=== PATIENT | male | born 1935 | race Caucasian/White ===

== ENCOUNTER 2016-07-17 17:49 | Emergency (ER) | payer MEDICARE ==
--- NOTE | 2016-07-17 18:22 | DIAGNOSTIC IMAGING REPORT ---
PROCEDURE: CT HEAD WITHOUT CONTRAST INDICATION: Right numbness. Code stroke. TECHNIQUE: Noncontrast axial images with sagittal and coronal reformations. COMPARISON: None. FINDINGS: Brain and ventricles are normal (mild atrophic changes). No evidence of an acute process or hemorrhage. Sinuses and mastoids are normal. IMPRESSION: 1. Negative head CT (mild atrophic changes). No evidence of acute process. 2. Findings discussed with Dr. Bradly Pratt at [address] scans at this facility use dose modulation, iterative reconstruction, and/or weight-based dosing when appropriate to reduce radiation dose to as low as reasonably achievable.
--- NOTE | 2016-07-17 20:35 | ED CLINICAL REPORT ---
Clinical Report - Physicians/Mid Levels [facility] [address] [place] [address] 07/17/2016 17:53 Patient: JUAN ALBERTO MARINA Time Seen: 18:07; initial patient contact. Arrived- By private vehicle. Historian- patient. HISTORY OF PRESENT ILLNESS Chief Complaint: WEAKNESS and PARESTHESIA. This started today and is now gone. The patient has had new onset of constant weakness of the right arm (moderate), right hand (moderate), right leg (moderate) and right foot (moderate). He has had new onset of constant numbness of the right arm (mild), right hand (mild), right leg (mild) and right foot (mild). No tingling, impaired speech or swallowing, visual disturbance or recent fall. No difficulty walking. At its maximum deficit described as moderate. When seen in the E.D., it was gone. No dizziness, altered mental status, seizure or blackouts. Usually is alert and oriented X3 and has normal mobility. (Pt states since he has not been able to easily cut his BP pill in 06/29, he has been taking it QOD.). Similar symptoms previously: None. Recent medical care: Not recently seen/assessed. REVIEW OF SYSTEMS The patient has had a headache. No head injury, chest pain, difficulty breathing, nausea or vomiting. All systems otherwise negative, except as recorded above. PAST HISTORY ( Gastroesophageal Reflux Disease. Hypertension. HLD). Surgeries: No history of previous surgery. SOCIAL HISTORY Never smoker. Occasional alcohol use. No drug use. ADDITIONAL NOTES The nursing notes have been reviewed with agreement regarding the chief complaint, PMH and patient medications and allergies. PHYSICAL EXAM Vital Signs: 07/17/2016 18:06 BP: 188/99. HR: 66. RR: 20. O2 saturation: 100%. Temp: 98.3 F. Have been reviewed. Hypertensive. Heart rate normal. Respiratory rate normal. Temperature normal. Oxygen saturation normal. Appearance: Alert. No acute distress. Head: Head atraumatic. Eyes: Pupils equal, round and reactive to light. ENT: Normal ENT inspection. Airway intact. Pharynx normal. Neck: Normal inspection. Neck supple. No carotid bruit. CVS: Bradycardia. Heart sounds normal. Pulses normal. Rhythm normal. Respiratory: No respiratory distress. Breath sounds normal. Abdomen: Soft and nontender. No organomegaly. Skin: Skin warm and dry. Normal skin color. No rash. Extremities: Extremities exhibit normal ROM. No lower extremity edema. No lower extremity edema. Neuro: Alert. Oriented X 3. Mood/affect normal. Speech normal. Cranial nerves normal (as tested). No cerebellar findings. No motor deficit. No sensory deficit. Reflexes normal. LABS, X-RAYS, AND EKG EKG: EKG time: (1822). No acute process. No acute ischemia. Bradycardia (ventricular rate 56). Sinus bradycardia. Normal P waves. Normal KEN. Normal QRS complex. LVH- in the precordial leads the R wave in V5 exceeds 26 mm; the R wave in V6 exceeds 26 mm. The QRS is less than 0.12. Normal axis. Normal ST and T waves, QT and QTc. Prior EKG unavailable. The study has been interpreted contemporaneously by me. The study has been independently viewed by me. The EKG appears to be a good tracing. I agree with and confirm the computer reading of the EKG. Interpretation time: 1822. CT Head: (1. Negative head CT (mild atrophic changes). No evidence of acute process.). Head CT performed without contrast. Prior studies were not available for comparison. The study was interpreted by the radiologist and discussed with the radiologist. Interpretation time: 1814. Laboratory Tests: CBC w Diff: (JEREMIAH: 07/17/2016 18:33) ( MsgRcvd 07/17/2016 18:42) Final results Test Result Flag Units (Reference) WHITE BLOOD COUNT 7.5 K/uL (4.5-11.5) RED BLOOD COUNT 4.65 M/uL (4.50-5.90) HEMOGLOBIN 14.6 gm/dL (13.5-17.5) HEMATOCRIT 43.5 % (41.0-53.0) MEAN CELL VOLUME 93 fL (80-100) MEAN CORPUSCULAR HGB 31 pg (26-34) MEAN CORPUSCULAR HGB CONC 34 g/dL (31-37) RED CELL DISTRIBUTION WIDTH 12.6 % (11.6-14.8) PLATELET COUNT 228 K/uL (150-400) NEUTROPHIL % 55.6 % (50-75) LYMPH % 31.5 % (25-40) MONO % 9.2 % (3-14) EOSINOPHIL % 3.5 % (0-4) BASOPHIL % 0.2 % (0-2) PT with INR: (JEREMIAH: 07/17/2016 18:33) ( [facility] 07/17/2016 18:53) Final results Test Result Flag Units (Reference) INR 1.0 (0.8-1.2) Low Intensity Therapy: INR 1.5-2.0 PT range 18.5-23.1Mod.Intensity Therapy: INR 2.0-3.0 PT range 23.1-31.5High Intensity Therapy: INR 2.5-3.5 PT range 27.4-35.5High Intensity Therapy 2: INR 3.0-4.0 PT range 31.5-39.3 APTT 31 SECONDS (24-34) FIBRINOGEN 204 mg/dL (193-455) D-DIMER QUANTITATIVE < 0.27 L ug/mLFEU (0.27-0.52) The primary value of this quantitative assay relates toits negative predictive value (i.e. exclusion) of pulmonaryembolism/deep vein thrombosis/DIC.Elevated levels of d-dimer may also occur with:, age, cancer, inflammation, liver disease,post-op, infection, hematoma, coronary disease, peripheralarteriopathy, bleeding disorders and thrombolytic treatment.Results should be correlated with other clinical andradiological data.Testing Methodology: Latex Immunoassay CMP: (JEREMIAH: 07/17/2016 18:33) ( [facility] 07/17/2016 18:56) Final results Test Result Flag Units (Reference) GLUCOSE 104 mg/dL (70-110) BUN 24 H mg/dL (7-18) CREATININE 1.5 H mg/dL (0.6-1.3) Estimated GFR 48.11 mL/min Estimated GFR- 58.30 mL/min Note: Persistent reduction over 3 months in eGFR<60 mL/min/1.73 m2 defines CKD. Patients with eGFR values>=60 mL/min/1.73 m2 may also have CKD if evidence ofpersistent proteinuria. Additional information may be foundat www.kidney.org. SODIUM 140 mmol/L (136-145) POTASSIUM 3.8 mmol/L (3.5-5.1) CHLORIDE 104 mmol/L (98-107) CARBON DIOXIDE 28 mmol/L (21-32) CALCIUM 8.8 mg/dL (8.5-10.1) TOTAL PROTEIN 7.5 g/dL (6.4-8.2) ALBUMIN 3.8 g/dL (3.3-5.0) BILIRUBIN, TOTAL 0.5 mg/dL (0.0-1.0) ALKALINE PHOSPHATASE 44 L U/L (46-116) AST (SGOT) 19 U/L (15-37) ALT (SGPT) 32 U/L (12-78) . PROGRESS AND PROCEDURES Disposition: Discharged home in good and improved condition. Condition: good. CLINICAL IMPRESSION Uncontrolled essential hypertension. INSTRUCTIONS Follow a low salt diet. (Monitor and record your blood pressure twice daily). Your Current Medications: CONTINUE TAKING THE FOLLOWING MEDICATIONS: Aspirin Oral. Blood Pressure Pill*. Omeprazole Oral. Follow-up: Follow up with your doctor in three days. Blood pressure screening was not performed during this visit because the patient has an active diagnosis of hypertension. The patient should follow up with a primary care provider for blood pressure management. (Electronically signed by Bradly Pratt Dr. 07/17/2016 20:42)
--- NOTE | 2016-07-17 20:35 | ED NURSING NOTES ---
Clinical Report - Nurses [facility] [address] [place] [address] 07/17/2016 17:53 [id number] TRI[facility] Triage time 1750. Acuity: LEVEL 2. Chief Complaint: WEAKNESS, NUMBNESS and DIFFICULTY WALKING. Alert. COLLEEN COMA SCORE: Colleen Coma Scale: 15- eyes open spontaneously (4); best verbal response- oriented x 4 (5); best motor response- obeys commands (6). --18:10 Viri Arellano 18:06 07/17/16. BP: 188/99. HR: 66. RR: 20. O2 saturation: 100%. Temp: 98.3 F. --18:10 Viri Arellano. Weight: 77.1 kg. Height/Length: 67 inches. BMI: 26.6. --18:06 Viri Arellano. Medications Omeprazole Oral. --18:07 Viri Arellano Blood Pressure Pill. --18:07 Viri Arellano Aspirin Oral. --18:30 Viri Arellano. Allergies Demerol. --21:10 Viri Arellano. History Arrived by private vehicle. Historian: family. Accompanied by family. This started today. Patient was last known well (0800). ( Pt sts awoke with right side numb, unable to walk or lift coffee cup, lasted 1.5 hrs then resolved yet pt still has a headache, code stroke called). 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 PAST MEDICAL HX: Hypertension. SOCIAL HX: Never smoker. Occasional alcohol use. --18:10 Viri Arellano. PROBLEMS: Gastroesophageal Reflux Disease. Hypertension. --18:08 Viri Arellano. ADDITIONAL SURGERIES: no known surgeries. Interventions To treatment room. --18:10 Viri Arellano. PHYSICAL ASSESSMENT Ambulatory to room. Patient gowned. ( Pt sts he also awoke with right eye blurriness that has also resolved, outside of headache pt feels normal, took ASA 81mg last night). GENERAL / NEURO / PSYCH: Awake. Oriented X 4. Alert. Appears anxious. Speech normal. Mood/affect normal. Moves all extremities. No motor deficit. No sensory deficit. Performed at 18:29. score of 0. HEENT: No facial asymmetry noted. Pupils equal, round and reactive to light. Pharynx within normal limits. RESPIRATORY: Breath sounds within normal limits. Respirations not labored. CVS: Normal sinus rhythm noted. Capillary refill less than 2 seconds. SKIN: Skin is intact, warm and dry. --18:29 Viri Arellano. NURSING PROGRESS NOTES 18:30 07/17/2016 Site #1 started via IV in the right wrist with an 18g angiocath, with aseptic technique; one attempt. Saline lock flushed with 10 mL saline. --18:30 Viri Arellano EKG time: (18:23). EKG was performed by a tech and shown to the ED physician. Checked patient name and birthdate: patient confirmed. Blood samples drawn from the left antecubital space with syringe and 21g butterfly by tech per protocol ; labeled in presence of the patient and sent to lab: rainbow set: cardiac enzymes (1st set). Finger stick glucose: 97 mg/dL; performed by tech; result shown to the ED physician and RN. --18:37 Amadeo Schmitt The patient reports no complaints and he is calm and resting quietly. Overall patient status is the same- he states feels the same. Patient and family informed about reason for wait and about plan of care. Patient waiting for results. --19:35 Viri Arellano 19:00 07/17/16. BP: 165/80. HR: 64. RR: 16. O2 saturation: 97%. --19:45 Viri Arellano 19:45 07/17/16. BP: 137/75. HR: 58. RR: 16. O2 saturation: 96%. --19:45 Viri Arellano. DISPOSITION / DISCHARGE 21:10 07/17/2016 Site #1 removed upon discharge. Pressure dressing applied. --21:10 Viri Arellano Departure time: 2104. Condition at departure: improved and stable. No learning barriers present. Discharge instructions provided and reviewed with the patient. Patient verbalized understanding. Written instructions provided in [place]. The patient was discharged by the physician. He was discharged home and accompanied by spouse. He left the Emergency Department ambulatory and via private vehicle. Patient driving. --21:10 Viri Arellano 21:08 07/17/16. BP: 155/75. HR: 60. RR: 16. O2 saturation: 99%. Pain level now 0/10. --21:10 Viri Arellano. Locked/Released at 07/17/2016 21:11 by Viri Arellano,
--- NOTE | 2016-07-17 20:35 | ED NURSING NOTES ---
Clinical Report - Nurses [facility] [address] [place] [address] 07/17/2016 17:53 [id number] TRI[facility] Triage time 1750. Acuity: LEVEL 2. Chief Complaint: WEAKNESS, NUMBNESS and DIFFICULTY WALKING. Alert. COLLEEN COMA SCORE: Colleen Coma Scale: 15- eyes open spontaneously (4); best verbal response- oriented x 4 (5); best motor response- obeys commands (6). --18:10 Viri Arellano 18:06 07/17/16. BP: 188/99. HR: 66. RR: 20. O2 saturation: 100%. Temp: 98.3 F. --18:10 Viri Arellano. Weight: 77.1 kg. Height/Length: 67 inches. BMI: 26.6. --18:06 Viri Arellano. Medications Omeprazole Oral. --18:07 Viri Arellano Blood Pressure Pill. --18:07 Viri Arellano Aspirin Oral. --18:30 Viri Arellano. Allergies Demerol. --21:10 Viri Arellano. History Arrived by private vehicle. Historian: family. Accompanied by family. This started today. Patient was last known well (0800). ( Pt sts awoke with right side numb, unable to walk or lift coffee cup, lasted 1.5 hrs then resolved yet pt still has a headache, code stroke called). 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 PAST MEDICAL HX: Hypertension. SOCIAL HX: Never smoker. Occasional alcohol use. --18:10 Viri Arellano. PROBLEMS: Gastroesophageal Reflux Disease. Hypertension. --18:08 Viri Arellano. ADDITIONAL SURGERIES: no known surgeries. Interventions To treatment room. --18:10 Viri Arellano. PHYSICAL ASSESSMENT Ambulatory to room. Patient gowned. ( Pt sts he also awoke with right eye blurriness that has also resolved, outside of headache pt feels normal, took ASA 81mg last night). GENERAL / NEURO / PSYCH: Awake. Oriented X 4. Alert. Appears anxious. Speech normal. Mood/affect normal. Moves all extremities. No motor deficit. No sensory deficit. Performed at 18:29. score of 0. HEENT: No facial asymmetry noted. Pupils equal, round and reactive to light. Pharynx within normal limits. RESPIRATORY: Breath sounds within normal limits. Respirations not labored. CVS: Normal sinus rhythm noted. Capillary refill less than 2 seconds. SKIN: Skin is intact, warm and dry. --18:29 Viri Arellano. NURSING PROGRESS NOTES 18:30 07/17/2016 Site #1 started via IV in the right wrist with an 18g angiocath, with aseptic technique; one attempt. Saline lock flushed with 10 mL saline. --18:30 Viri Arellano EKG time: (18:23). EKG was performed by a tech and shown to the ED physician. Checked patient name and birthdate: patient confirmed. Blood samples drawn from the left antecubital space with syringe and 21g butterfly by tech per protocol ; labeled in presence of the patient and sent to lab: rainbow set: cardiac enzymes (1st set). Finger stick glucose: 97 mg/dL; performed by tech; result shown to the ED physician and RN. --18:37 Amadeo Schmitt The patient reports no complaints and he is calm and resting quietly. Overall patient status is the same- he states feels the same. Patient and family informed about reason for wait and about plan of care. Patient waiting for results. --19:35 Viri Arellano 19:00 07/17/16. BP: 165/80. HR: 64. RR: 16. O2 saturation: 97%. --19:45 Viri Arellano 19:45 07/17/16. BP: 137/75. HR: 58. RR: 16. O2 saturation: 96%. --19:45 Viri Arellano. DISPOSITION / DISCHARGE 21:10 07/17/2016 Site #1 removed upon discharge. Pressure dressing applied. --21:10 Viri Arellano Departure time: 2104. Condition at departure: improved and stable. No learning barriers present. Discharge instructions provided and reviewed with the patient. Patient verbalized understanding. Written instructions provided in [place]. The patient was discharged by the physician. He was discharged home and accompanied by spouse. He left the Emergency Department ambulatory and via private vehicle. Patient driving. --21:10 Viri Arellano 21:08 07/17/16. BP: 155/75. HR: 60. RR: 16. O2 saturation: 99%. Pain level now 0/10. --21:10 Viri Arellano. Locked/Released at 07/17/2016 21:11 by Viri Arellano,
--- NOTE | 2016-07-17 20:36 | ED ORDER SUMMARY ---
..... Patient: JUAN ALBERTO MARINA OrderSheet [facility] VisitID: [id number] [address] [place] [address] 80y, M Registration Date/Time: 07/17/2016 ORDER SHEET Weight: 77.1 kg Allergies: Demerol GENERAL ORDERS: CT Head wo Cont Urgent (18:07 07/17/2016 Mela Collado) (Ack 18:13 Claire) (19:03 MCampbell) Stroke Panel Stat (18:08 07/17/2016 Mela Collado) (Ack 18:13 Claire) MEDICATION ORDERS: IV FLUIDS: IV Saline Lock (18:08 07/17/2016 Mela Collado) ([facility] ORDER SHEET NOTES: [Electronically signed by Bradly Pratt Dr. (20:42 07/17/2016)] [Electronically signed by Viri Arellano (21:11 07/17/2016)] [Electronically locked/signed by Viri Arellano (21:11 07/17/2016)]
--- NOTE | 2016-07-17 20:36 | ED ORDER SUMMARY ---
..... Patient: JUAN ALBERTO MARINA OrderSheet [facility] VisitID: [id number] [address] [place] [address] 80y, M Registration Date/Time: 07/17/2016 ORDER SHEET Weight: 77.1 kg Allergies: Demerol GENERAL ORDERS: CT Head wo Cont Urgent (18:07 07/17/2016 Mela Collado) (Ack 18:13 Claire) (19:03 MCampbell) Stroke Panel Stat (18:08 07/17/2016 Mela Collado) (Ack 18:13 Claire) MEDICATION ORDERS: IV FLUIDS: IV Saline Lock (18:08 07/17/2016 Mela Collado) (18:[facility] ORDER SHEET NOTES: [Electronically signed by Bradly Pratt Dr. (20:42 07/17/2016)] [Electronically signed by Viri Arellano (21:11 07/17/2016)] [Electronically locked/signed by Viri Arellano (21:11 07/17/2016)]
--- NOTE | 2016-07-17 21:11 | ED MED RECONCILIATION SUMMARY ---
Patient: JUAN ALBERTO MARINA Medication Reconciliation Report [facility] VisitID: [id number] [address] [place] [place] [address] 80y, M Registration Date/Time: 07/17/2016 Weight: 77.1 kg Height/Length: 67 in. BMI: 26.6 ALLERGIES: Demerol The patient's Home Medications are listed below: CONTINUE TAKING THE FOLLOWING MEDICATIONS: Aspirin Oral Blood Pressure Pill Omeprazole Oral The source(s) of the original Home Medication information: Not obtained. The following Medications were given to the patient in the Emergency Department: None. The following Medications were prescribed to the patient: None.
--- NOTE | 2016-07-17 21:11 | ED MAR SUMMARY ---
..... Medication Administration Record [facility] [address] [place], [place] [id number] Patient: JUAN ALBERTO MARINA Visit ID: [id number] 80y, M Weight: 77.1 kg Height/Length: 67 in BMI: 26.6 ALLERGIES: Demerol
--- NOTE | 2016-07-17 21:11 | ED DISCHARGE INSTRUCTIONS ---
Patient: JUAN ALBERTO MARINA General Instructions [facility] VisitID: [id number] [place] [address] 80y, M Registration Date/Time: 07/17/2016 Uncontrolled essential hypertension. INSTRUCTIONS Follow a low salt diet. (Monitor and record your blood pressure twice daily). Your Current Medications: CONTINUE TAKING THE FOLLOWING MEDICATIONS: Aspirin Oral. Blood Pressure Pill*. Omeprazole Oral. Follow-up: Follow up with your doctor in three days. Blood pressure screening was not performed during this visit because the patient has an active diagnosis of hypertension. The patient should follow up with a primary care provider for blood pressure management. ADDITIONAL INFORMATION Hypertension, Out Of Control (Established) Your blood pressure was unusually high today. This can occur as a result of missing doses of your blood pressure medicine. Some asthma inhalers, decongestants, diet pills, and street drugs such as cocaine and amphetamine can worsen hypertension. An increase in body weight, increase in salt intake, smoking, and caffeine are other causes. Emotional upset or acute pain can cause a sudden rapid rise in blood pressure which may return to normal after a period of rest. A normal blood pressure is less than 140/90. The first (top) number is the systolic pressure. The second (bottom) number is the diastolic pressure. Hypertension exists when either the top number is 140 or higher, OR the bottom number is 90 or higher on repeated measurements. Home Care: All patients with high blood pressure should do the following to lower their pressure. If you are on blood pressure medicines, then these methods may reduce or eliminate your need for medicines in the future. Begin a weight-loss program if you are overweight. Reduce your salt intake. Avoid high-salt foods (olives, pickles, smoked meats, salted potato chips, etc.). Do not add salt to your food at the table. Use only small amounts of salt when cooking. Begin an exercise program. Discuss with your doctor what type of exercise program would be best for you. It doesnt have to be difficult. Even brisk walking for 20 minutes3 times a week is a good form of exercise. Avoid medicines which contain heart stimulants. This includes many cold and sinus decongestant pills and sprays as well as diet pills. Check the warnings about hypertension on the label. Stimulants such as amphetamine or cocaine could be lethal for someone with hypertension. Never take these. Limit your caffeine intake or switch to decaf. Stop smoking. If you are a long-time smoker, this can be hard. Enroll in a stop-smoking program to improve your chance of success. Talk to your physician about ways to improve your chance of success. Learning how to handle stress better is an important part of any program to lower blood pressure. Learn about relaxation methods such as meditation, yoga, or biofeedback. If medicines were prescribed, take them exactly as directed. Missing doses may cause your blood pressure to get out of control. Consider buying an automatic blood pressure machine (available at many pharmacies). Use this to monitor your blood pressure and report to your doctor. Follow Up: Regular visits to your own doctor for blood pressure checks and medicine adjustment is an important part of your care. Make a follow-up appointment as directed by our staff. Get Prompt Medical Attention if any of the following occur: Chest, arm, shoulder, neck, or upper back pain Shortness of breath Severe headache Throbbing or rushing sound in the ears Nosebleed Extreme drowsiness, confusion, or fainting Dizziness or vertigo (dizziness with spinning sensation) Weakness of an arm or leg or one side of the face Difficulty with speech or vision Low-Salt Diet (2 Grams/Day) This diet eliminates foods that are high in salt and restricts the amount of salt that you cook with. It is most often used for patients with high blood pressure, edema (fluid retention), kidney, liver, and heart disease. Table salt contains the mineral sodium. The body needs sodium to work normally. But too much sodium can make your health problems worse. Your healthcare provider is recommending a low-salt (also called low-sodium) diet for you. Your total daily allowance of salt (sodium) is 2 grams. This equals 2,000 milligrams (mg). It is less than 1 teaspoon of table salt. This means you can have only about 700 mg of sodium at each meal. When you cook, limit the salt you use. And if you can avoid using salt, even better. Do not add salt at the table. So, throw away the saltshaker! When shopping, read the package labels. Salt is often called sodium on the label. Choose foods that are Salt-Free, Low Salt, or Very Low Salt. Note that foods with Reduced Salt may notlower your salt intake enough. Beverages OK: Tea, coffee, carbonated beverages, juices AVOID: Flavored international coffees, electrolyte replacement drinks, sports beverages Bread & Cereals OK: All regular bread, rolls, cereals, cakes; low-salt crackers, matzoh crackers AVOID: Salted crackers, pretzels, popcorn; malay toast, pancakes, muffins Fruits & Desserts OK: Ice cream, frozen yogurt, juice bars, gelatin (Jell-O), cookies and pies, sugar, honey, jelly, hard candy AVOID: Most pies, cakes and cookies prepared or processed with salt, instant pudding Meats OK: All fresh meat, fish, poultry, low-salt tuna AVOID: Smoked, pickled, brine-cured, or salted meats or fish. Thisincludes hendrickson, chipped beef, corned beef, hot dogs, luncheon meats, ham, kosher meats, salt pork, sausage, canned tuna, salted codfish, smokedsalmon, moody, sardines, or anchovies. Dairy OK: Milk, chocolate milk, hot chocolate mix; eggs, Low Salt cheeses, yogurt, egg substitute AVOID: Processed cheese, cheese spreads, Roquefort, Camembert, and cottage cheese, buttermilk, instant breakfast drink Beans, Potatoes & Pasta OK: Dry beans, split peas, lentils, potatoes, rice, macaroni, noodles, spaghetti without added salt AVOID: Potato chips, tortilla chips, and similar products Soups OK: Low-salt soups and broths made with allowed foods AVOID: Bouillon cubes, soups with smoked or salted meats, regular soup and broth Vegetables OK: Most are okay; low-salt tomato and vegetable juices AVOID: Sauerkraut and other brine-soaked vegetables, pickles and other pickled vegetables, tomato juice, olives Seasoning & Spices OK: Most seasonings are okay. Good substitutes for salt include: fresh herb blends, Tabasco, lemon, garlic, lyon, vinegar, dry mustard, parsley, cilantro, horseradish, tomato paste, regular margarine, mayonnaise, butter, cream cheese, vegetable oil, cream, low-salt salad dressing and gravy AVOID: Regular ketchup, relishes, pickles, soy sauce, teriyaki sauce, Worcestershire sauce, BBQ sauce, tartar sauce, meat tenderizer, chili sauce, regular gravy, regular salad dressing You have been given the following additional information: Hypertension, Established, Out Of Control Diet, Low Salt (2Gm) (Electronically signed by Bradly Pratt Dr. 07/17/2016 20:42)
--- NOTE | 2016-07-17 21:11 | ED MED RECONCILIATION SUMMARY ---
Patient: JUAN ALBERTO MARINA Medication Reconciliation Report [facility] VisitID: [id number] [address] [place] [address] 80y, M Registration Date/Time: 07/17/2016 Weight: 77.1 kg Height/Length: 67 in. BMI: 26.6 ALLERGIES: Demerol The patient's Home Medications are listed below: CONTINUE TAKING THE FOLLOWING MEDICATIONS: Aspirin Oral Blood Pressure Pill Omeprazole Oral The source(s) of the original Home Medication information: Not obtained. The following Medications were given to the patient in the Emergency Department: None. The following Medications were prescribed to the patient: None.
--- NOTE | 2016-07-17 21:11 | ED MAR SUMMARY ---
..... Medication Administration Record [facility] [address] [place], [place] [id number] Patient: JUAN ALBERTO MARINA Visit ID: [id number] 80y, M Weight: 77.1 kg Height/Length: 67 in BMI: 26.6 ALLERGIES: Demerol
== END 2016-07-17 21:05 | disposition home or self-care (01) ==
LOC: ED SRH 17:49
DX: I10 Essential (primary) hypertension (principal); K21.9 Gastro-esophageal reflux disease without esophagitis
CPT/HCPCS: 90100; 91556; 94001; 94050; 94060; 95059

== ENCOUNTER 2016-07-29 13:31 | Outpatient (CLI) | payer MEDICARE ==
--- NOTE | 2016-07-29 15:23 | DIAGNOSTIC IMAGING REPORT ---
PROCEDURE: US BILATERAL CAROTID DOPPLER INDICATION: TIA TECHNIQUE: Color Doppler duplex imaging of the carotid and vertebral vessels. COMPARISON: None. FINDINGS: Right carotid system: No significant stenosis visualized. The waveforms are normal. Mild plaque formation Left carotid system: No significant stenosis visualized. The waveforms are normal. Mild plaque formation Vertebral System: Antegrade vertebral artery flow bilaterally. Right common carotid artery peak systolic velocity 52 cm/second. Right internal carotid artery peak systolic velocity 93 cm/second. Right external carotid artery peak systolic velocity 92 cm/second. Right vertebral artery peak systolic velocity 34 cm/second. Left common carotid artery peak systolic velocity 56 cm/second. Left internal carotid artery peak systolic velocity 108 cm/second. Left external carotid artery peak systolic velocity 65 cm/second. Left vertebral artery peak systolic velocity 44 cm/second. Thyroid nodules were found on the right mid lobe measuring 3.4 x 2.4 x 2 cm. On the left lobe inferiorly measuring 3.8 x 1.8 x 2.0 cm IMPRESSION: 1. No hemodynamically significant stenosis in either carotid system. 2. Antegrade vertebral artery flow bilaterally. 3. Bilateral thyroid nodules Velocity criteria are extrapolated from diameter data as defined by the Society of Radiologists in Ultrasound Consensus Conference, Radiology 2003; 229; 340-346.
== END 2016-07-29 23:00 ==
LOC: US SRH 13:31
DX: G45.9 Transient cerebral ischemic attack, unspecified (principal)